=== PATIENT | female | born 1970 | race Caucasian/White ===

== ENCOUNTER → 2024-06-25 | Outpatient (CLI) | payer BC, SELFPAY ==
[2024-06-25 11:00] LABS: Cardiac Risk Estimate 2.7 RATIO (3.7-5.6); Cholesterol 144 mg/dL (132-200); Free T4 (Free Thyroxine) 1.13 ng/dL (0.89-1.76); HDL Cholesterol 54 mg/dL (40-60); LDL Cholesterol,Calculated 74 mg/dL (0-130); Triglycerides 79 mg/dL (30-150)
== END | disposition home or self-care (01) ==
LOC: COPL 09:35
PROVIDERS: PCP Family Medicine; Referring Provider Family Medicine; Visit Provider Family Medicine
DX: E03.9 Hypothyroidism, unspecified (principal); I10 Essential (primary) hypertension
CPT/HCPCS: 36415; 80061; 84439; 84443

== ENCOUNTER → 2024-07-02 | Outpatient (CLI) | payer BC, SELFPAY ==
[2024-07-02 12:39] LABS: Alanine Aminotransferase 22 U/L (10-49); Albumin, Serum 4.9 gm/dL (3.5-5.0); Albumin/Globulin Ratio 2.1 (1.2-2.2); Alkaline Phosphatase 106 U/L (46-116); Anion Gap 6 (7-16); Aspartate Amino Transferase 27 U/L (0-34); BUN/Creatinine Ratio 20 Ratio (12-20); Bilirubin,Total 1.1 mg/dL (0.3-1.2); Blood Urea Nitrogen 16 mg/dL (9-23); Calcium 9.9 mg/dL (8.3-10.6); Calcium (Corrected) 9.9 mg/dL (8.5-10.1); Carbon Dioxide 30.9 mMol/L (20.0-31.0); Chloride 101 mMol/L (98-107); Creatinine (Component) 0.8 mg/dL (0.6-1.3); Globulin 2.3 gm/dL (2.3-3.5); Glucose 99 mg/dL (74-106); Osmolality,Calculated 276 (275-295); Potassium 3.8 mMol/L (3.4-5.1); Sodium 138 mMol/L (136-145); Thyroid Stimulating Hormone 4.17 uIU/mL (0.55-4.78); Total Protein 7.2 gm/dL (5.7-8.2); eGFR > 60 See Note
[2024-07-02 12:56] LABS: Vitamin B12 > 2000 pg/mL (211-911)
== END | disposition home or self-care (01) ==
PROVIDERS: PCP Family Medicine; Referring Provider Family Medicine; Visit Provider Family Medicine
DX: R51.9 Headache, unspecified (principal); R47.81 Slurred speech
CPT/HCPCS: 36415; 80053; 82607; 84443

== ENCOUNTER → 2024-07-06 | Outpatient (CLI) | payer BC, SELFPAY ==
--- NOTE | 2024-07-06 | XR_ITS ---
Examination: MRI of brain without intravenous contrast. MRI brain with intravenous contrast. Date and time of exam:July 06, 2024 0801 hours INDICATIONS: Expressive language difficulty breathing and headaches beginning June 20, 2024, history breast cancer diagnosis Technique: Multiple axial and sagittal images of the brain to been obtained. Siemens high-resolution 1.52 Vianca short bore scanner utilized. Sagittal sections, T1 weighted images, TR 500, TE 14, are performed. Axial sections proton-density and T2-weighted images have been obtained. Inversion recovery axial images, TR 9260, TE 111, TR 2500. Diffusion weighted images, axial sections, TR 4800, TE 128, B value 1000. Axial sections, ADC map, TR 4800, TE 128. Axial and coronal images were also obtained post 14 cc gadolinium administered intravenously. Findings:: Enlargement of the sella turcica is not present. The optic chiasm and infundibular stalk are not remarkable. There is no localized enlargement of the medulla or jef. Fourth ventricle and cerebellar tonsils appear normal in position. No subacute area of hemorrhage density is seen. Fourth ventricle is midline. Mass in the cerebellopontine angle region is not evident. 7th and 8th nerve complexes exhibit symmetry Globes are symmetrical Orbital musculature including medial lateral rectus muscles do not exhibit abnormality Increased white matter signal is evident, scattered punctate foci increased signal in the cerebral white matter Effacement of the cortical sulcal markings is not identified. Mass effect upon the ventricular system is not identified. Diffusion-weighted images demonstrate no focus of restricted diffusion Contrast images demonstrate no abnormal enhancement Impression: Scattered punctate foci increased signal in the white matter, demyelinating disease pattern No abnormal enhancing cerebellar or cerebral lesions
== END | disposition home or self-care (01) ==
LOC: SMRI 07:39
PROVIDERS: Referring Provider Family Medicine; Visit Provider Family Medicine
DX: R90.82 White matter disease, unspecified (principal)
CPT/HCPCS: 70553; A9579

== ENCOUNTER → 2024-08-06 | Outpatient (CLI) | payer BC, SELFPAY ==
[2024-08-06 12:29] LABS: Coccid Serology, CF CSF (UCD)* See Sep Rpt; Misc Send Out* See Sep Rpt
[2024-08-06 13:27] LABS: Glucose,CSF 62 mg/dL (40-70); Protein Total,CSF 29 mg/dL (8-32)
[2024-08-06 13:46] LABS: CSF Cell Count Tube # Tube # 4; CSF Color Colorless (Colorless)
[2024-08-06 13:47] LABS: CSF Polynuclear WBC 0 %; CSF Red Blood Cell 2 /cmm; CSF White Blood Cell 14 /cmm; CSF, Appearance Clear (Clear)
[2024-08-06 14:52] LABS: CSF Gram Stain Alert Gram Stain Completed
[2024-08-10 13:50] LABS: Albumin, CSF 14.4 mg/dL (8.0-42.0); IgG, CSF 1.5 mg/dL (0.8-7.7); IgG, Serum 1090 mg/dL (600-1640); Synthesis Rate IgG, CSF -5.1 mg/24 h (-9.9 TO +3.3)
[2024-08-11 06:26] LABS: Albumin, Serum 4.2 g/dL (3.6-5.1); VDRL, CSF Qual* NON-REACTIVE
[2024-08-16 06:42] LABS: Angiotensin Convert Enz, CSF* 7 U/L (< OR = 15); Myelin Basic Protein, CSF* <2.0 mcg/L (< OR = 4.0); Oligoclonal Bands, CSF* ABSENT (ABSENT)
== END | disposition home or self-care (01) ==
LOC: COPL 11:59
PROVIDERS: PCP Family Medicine; Referring Provider Psychiatry & Neurology Neurology; Visit Provider Psychiatry & Neurology Neurology
DX: G37.9 Demyelinating disease of central nervous system, unspecified (principal)
CPT/HCPCS: 36415; 82040; 82042; 82164; 82784; 82945; 83873; 83916; 84157; 86171; 86592; 87070; 87205; 89051

== ENCOUNTER → 2024-09-03 | Outpatient (CLI) | payer BC, SELFPAY ==
[2024-09-03 11:12] LABS: Basophils # (Auto) 0.1 Thou/mm3 (0.0-0.2); Basophils % (Auto) 1 % (0-2.5); Eosinophils # (Auto) 0.2 Thou/mm3 (0.0-0.5); Eosinophils % (Auto) 4 % (0-10); Hematocrit 39.2 % (36.0-46.0); Hemoglobin 13.1 g/dL (12.0-16.0); Immature Granulocytes % (Auto) 0 % (0-0); Immature Granulocytes Auto 0.02 Thou/mm3 (0.00-0.00); Lymphocytes # (Auto) 1.8 Thou/mm3 (1.0-4.8); Lymphocytes % (Auto) 35 % (10-50); Mean Corpuscular HGB Conc 33.4 g/dl (31.0-37.0); Mean Corpuscular Hemoglobin 30.7 pg (25.0-35.0); Mean Corpuscular Volume 92 fL (80-100); Monocytes # (Auto) 0.3 Thou/mm3 (0.0-0.8); Monocytes % (Auto) 6 % (0-12); Neutrophils # (Auto) 2.8 Thou/mm3 (1.8-7.7); Neutrophils % (Auto) 54 % (37-80); Nucleated Red Blood Cell % 0 /100 WBC (0); Platelet Count 202 Thou/mm3 (140-440); Red Blood Count 4.27 Miln/mm3 (4.00-5.20); White Blood Count 5.2 Thou/mm3 (3.6-11.0)
[2024-09-03 11:35] LABS: Alanine Aminotransferase 40 U/L (10-49); Albumin, Serum 4.5 gm/dL (3.5-5.0); Alkaline Phosphatase 83 U/L (46-116); Anion Gap 7 (7-16); Aspartate Amino Transferase 24 U/L (0-34); BUN/Creatinine Ratio 24 Ratio (12-20); Blood Urea Nitrogen 17 mg/dL (9-23); Calcium 9.9 mg/dL (8.3-10.6); Calcium (Corrected) 9.9 mg/dL (8.5-10.1); Carbon Dioxide 32.5 mMol/L (20.0-31.0); Chloride 106 mMol/L (98-107); Creatinine (Component) 0.7 mg/dL (0.6-1.3); Globulin 2.3 gm/dL (2.3-3.5); Glucose 89 mg/dL (74-106); Osmolality,Calculated 289 (275-295); Potassium 3.7 mMol/L (3.4-5.1); Sodium 145 mMol/L (136-145); Total Protein 6.8 gm/dL (5.7-8.2); eGFR > 60 See Note
[2024-09-03 11:53] LABS: CA 15-3 16.2 U/mL (<32.4); Carcinoembryonic Antigen 1.2 ng/mL (0.0-5.0)
== END | disposition home or self-care (01) ==
LOC: SCTO 10:15
PROVIDERS: PCP Family Medicine; Referring Provider Nurse Practitioner Family; Visit Provider Nurse Practitioner Family
DX: C50.119 Malignant neoplasm of central portion of unspecified female breast (principal)
CPT/HCPCS: 36415; 80053; 82378; 85025; 86300

== ENCOUNTER 2024-09-08 10:31 | Outpatient (RCR) | payer BC, SELFPAY ==
--- NOTE | 2024-09-09 06:27 | CTCFLWUP_ITS ---
Patient: CHRISTIE RADFORD : 1970 Page 8 of 9 FOLLOW UP NOTE DATE OF SERVICE: 09/08/2024 NAME: CHRISTIE RADFORD ACCOUNT: [id number] : 1970 AGE: 53 INTERVAL HISTORY: ONCOLOGY HISTORY: DIAGNOSIS: Malignant neoplasm of central portion of unspecified female breast [ICD10] C50.119 Stage IIA (T2, N0, M0) triple negative high-grade invasive ductal carcinoma of left breast with palpable left axillary adenopathy. S/p 4 cycles of dose dense AC as well as 4 cycles of dose dense Taxol in the neoadjuvant setting (05/29/2020?09/11/2020). Status post bilateral mastectomies and left axillary sentinel node biopsy. Surgical pathology specimen showed no residual disease (yP0, yN0). BRCA 1 and 2 negative Status post bilateral silicone breast implants. DATE OF DIAGNOSIS: 04/20/2020 STAGE/TNM: Stage IIA (T2, N0, M0) triple negative high-grade invasive ductal carcinoma of left breast with palpable left axillary adenopathy. TREATMENT HISTORY: Care?Plan Start?Date Cycle Day Intent AC-Taxol?Dose?Dense?q?2wks 05/10/2020 1 14 Curative?(adjuvant) HISTORY OF PRESENT ILLNESS: PREVIOUS NOTE: Christie Radford is a 53-year-old ENG speaking female working ,has been having yearly screening mammograms since age 33 due to strong family history, recently had a regular yearly screening mammogram which showed a mass lesion in the left breast. 03/07/2020: Bilateral screening digital mammography? 03/30/2020: Bilateral diagnostic digital mammography? 03/30/2020: Left breast ultrasound? 04/20/2020: Ultrasound-guided percutaneous left breast retroareolar mass biopsy? 05/10/2020: Right breast stereotactic biopsy? 05/11/2020: CA 15-3 19.0, CEA less than 0.5. 05/17/2020: Echocardiogram?LVEF 55-60%. 05/22/2020: Ultrasound-guided biopsy of the left axillary mass was performed. Right axillary ultrasound did not reveal any adenopathy. 05/24/2020: CT scan of the chest abdomen and pelvis with IV contrast? 05/22/2020: Left axillary lymph node ultrasound-guided fine-needle aspiration/biopsy? 05/29/2020?07/10/2020: Patient received 4 cycles of dose dense AC chemotherapy in the neoadjuvant setting. 07/24/2020?09/11/2020: Patient received 4 cycles of dose dense Taxol. 05/29/2020: BRCA 1 and 2 test results came back negative? 09/18/2020: Left breast MRI with and without contrast? 11/03/2020: Bilateral mastectomies and left sentinel lymph node biopsy? 06/11/2021: S/p bilateral silicone breast implantation. 11/03/2021: PET/CT scan?no interval metastatic disease. 11/21/2022: PET/CT 03/10/2023: MRI breast with and without contrast 04/07/2023: Bilateral mammogram screening 04/18/2023: Bilateral ultrasound 12/15/2023: Right diagnostic mammogram 03/19/2024: Bone densitometry-osteopenia on hip measurements 05/19/2024: CEA<0.5, CA 15-3 is 18.9 OTHER MEDICAL HISTORY/CONDITIONS: FAMILY HISTORY: SOCIAL HISTORY: [employer] WORKER HISTORY: MEDICATIONS: 1. alendronate - 35 mg 1 tab one tab po q weekly 2. B12 - 5,000-100 mcg Daily 3. Citracal - 200 mg 1 tab Twice a Day 4. hydrochlorothiazide - 25 mg 1 tab Daily 5. levothyroxine - 50 mcg 1 tab Daily 6. multivitamin - 1 tab Daily Medications Last Reconciled by Rehana Govea MA on 09/08/2024 ALLERGIES: No Known Drug Allergies REVIEW OF SYSTEMS: A complete 14-point review of systems was performed and is negative except as noted in interval history. PHYSICAL EXAMINATION: VITAL SIGNS: Temperature?99.8, B/P?125/87, Oxygen?Saturation?100% Weight?162?lbs PAIN: 0 - No pain GENERAL APPEARANCE: Appears well, in no apparent distress, appropriately interactive. HEENT: Normocephalic, no temporal wasting, normal conjunctiva, no scleral icterus, normal hearing, lips without lesions, neck normal range of motion. CARDIOVASCULAR: Not assessed. PULMONARY: Normal respiratory effort, no respiratory distress or use of accessory muscles, speaking in full sentences, no tachypnea. EXTREMITIES: No pedal edema or cyanosis. SKIN: Normal skin appearance. NEUROLOGIC: Alert and oriented x4. PSHYCHIATRIC: Appropriate affect, mood normal, behavior normal, intact thought and speech. LABORATORY DATA: I have personally reviewed and interpreted each of the patient?s relevant lab tests, abnormal findings are below: Date 09/03/24 ??WHITE?BLOOD?COUNT?(Thou/mm3) 5.2 ??RED?BLOOD?COUNT?(Miln/mm3) 4.27 ??HEMOGLOBIN?(gm/dl) 13.1 ??HEMATOCRIT?(%) 39.2 ??PLATELET?COUNT?(Thou/mm3) 202 ??NEUTROPHILS?%,?AUTO?(%) 54 ??LYMPH?%,?AUTO?(%) 35 ??NEUTROPHILS,?AUTO?(Thou/mm3) 2.8 ASSESSMENT/PLAN: #1. Stage IIA (T2, N0, M0) triple negative high-grade invasive ductal carcinoma of left breast with palpable left axillary adenopathy. S/p 4 cycles of dose dense AC as well as 4 cycles of dose dense Taxol in the neoadjuvant setting (05/29/2020?09/11/2020). Status post bilateral mastectomies and left axillary sentinel node biopsy. Surgical pathology specimen showed no residual disease (yP0, yN0). BRCA 1 and 2 negative Strong family history of breast cancers. Completed bilateral breast reconstruction surgery without any complication Status post bilateral silicone breast implants. Follows up with Dr. Smith, breast surgeon and Dr. Mckinney, plastic surgeon. Liposuction bilateral chest, 01/12/2024. PET/CT scan done on 11/21/2022 is a negative study. No clinical evidence of recurrence of her breast cancer, Ms. Radford denies any complaints. CBC CMP CEA CA 15-3 prior to next follow-up appointment #2. Hypothyroidism. Taking levothyroxine, continue following up with PCP for management. #3. Colon cancer screening Colonoscopy, hemorrhoids, 11/29/2022. #4. Osteopenia Biphosphonate clearance form. On Fosamax 35mg weekly. Taking daily [id number] vitamin D. Continue Citracal 2 tablets by mouth daily. CBC CMP CA 15-3 RETURN TO CLINIC: 6 months BILLING AND COMPLIANCE: I reviewed external records from providers outside my specialty as summarized above. I spent a total of 50 minutes on this patient?s care on the day of their visit excluding time spent related to any billed procedures. This time includes time spent with the patient as well as time spent documenting in the medical record, reviewing patients records and tests, obtaining history, placing orders, communicating with other healthcare professionals, counseling the patient, family or caregiver, and/or care coordination for the diagnoses above. Electronically Signed by: Jens Jim MD T: 6:25 AM CC: PCP: Celestino Childers Referring: Celestino Childers This document was completed utilizing speech recognition software. Grammatical errors, random word insertions, pronoun errors, and incomplete sentences are an occasional consequence of this system due to software limitations, ambient noise, and hardware issues. Any formal questions or concerns about the content, text or information contained within the body of this dictation should be directly addressed to the provider for clarification.
== END 2024-09-17 23:59 | disposition home or self-care (01) ==
LOC: SCTC 10:31
PROVIDERS: PCP Family Medicine; Referring Provider Family Medicine; Visit Provider Internal Medicine Hematology & Oncology
DX: Z08 Encounter for follow-up examination after completed treatment for malignant neoplasm (principal); Z85.3 Personal history of malignant neoplasm of breast; Z92.21 Personal history of antineoplastic chemotherapy; Z90.13 Acquired absence of bilateral breasts and nipples; Z80.3 Family history of malignant neoplasm of breast; E03.9 Hypothyroidism, unspecified; Z79.890 Hormone replacement therapy; K64.9 Unspecified hemorrhoids; M85.80 Other specified disorders of bone density and structure, unspecified site
CPT/HCPCS: 99212; G0463

== ENCOUNTER → 2025-03-03 | Outpatient (CLI) | payer BC, SELFPAY ==
[2025-03-03 17:53] LABS: Basophils # (Auto) 0.1 Thou/mm3 (0.0-0.2); Basophils % (Auto) 1 % (0-2.5); Eosinophils # (Auto) 0.1 Thou/mm3 (0.0-0.5); Eosinophils % (Auto) 2 % (0-10); Hematocrit 38.6 % (36.0-46.0); Hemoglobin 12.8 g/dL (12.0-16.0); Immature Granulocytes Auto 0.02 Thou/mm3 (0.00-0.00); Lymphocytes # (Auto) 2.5 Thou/mm3 (1.0-4.8); Lymphocytes % (Auto) 44 % (10-50); Mean Corpuscular HGB Conc 33.2 g/dl (31.0-37.0); Mean Corpuscular Hemoglobin 31.6 pg (25.0-35.0); Mean Corpuscular Volume 95 fL (80-100); Monocytes # (Auto) 0.4 Thou/mm3 (0.0-0.8); Monocytes % (Auto) 6 % (0-12); Neutrophils # (Auto) 2.7 Thou/mm3 (1.8-7.7); Neutrophils % (Auto) 47 % (37-80); Nucleated Red Blood Cell # 0.00 Thou/mm3 (0.00-0.00); Nucleated Red Blood Cell % 0 /100 WBC (0); Platelet Count 203 Thou/mm3 (140-440); RDW Standard Deviation 41.4 fL (36.4-46.3); Red Blood Count 4.05 Miln/mm3 (4.00-5.20); White Blood Count 5.8 Thou/mm3 (3.6-11.0)
[2025-03-03 17:56] LABS: Alanine Aminotransferase 19 U/L (10-49); Albumin, Serum 4.8 gm/dL (3.5-5.0); Albumin/Globulin Ratio 2.0 (1.2-2.2); Alkaline Phosphatase 75 U/L (46-116); Anion Gap 10 (7-16); Aspartate Amino Transferase 29 U/L (0-34); BUN/Creatinine Ratio 13 Ratio (12-20); Bilirubin,Total 0.6 mg/dL (0.3-1.2); Blood Urea Nitrogen 9 mg/dL (9-23); Calcium 10.3 mg/dL (8.3-10.6); Calcium (Corrected) 10.3 mg/dL (8.5-10.1); Carbon Dioxide 31.7 mMol/L (20.0-31.0); Chloride 100 mMol/L (98-107); Creatinine (Component) 0.7 mg/dL (0.6-1.3); Globulin 2.4 gm/dL (2.3-3.5); Glucose 78 mg/dL (74-106); Osmolality,Calculated 280 (275-295); Potassium 3.2 mMol/L (3.4-5.1); Sodium 142 mMol/L (136-145); Total Protein 7.2 gm/dL (5.7-8.2); eGFR > 60 See Note
[2025-03-03 18:26] LABS: CA 15-3 18.3 U/mL (<32.4)
== END | disposition home or self-care (01) ==
LOC: SCTO 16:22
PROVIDERS: PCP Family Medicine; Referring Provider Internal Medicine Hematology & Oncology; Visit Provider Internal Medicine Hematology & Oncology
DX: C50.119 Malignant neoplasm of central portion of unspecified female breast (principal)
CPT/HCPCS: 36415; 80053; 85025; 86300

== ENCOUNTER 2025-03-08 08:59 | Outpatient (RCR) | payer BC, SELFPAY | END 2025-03-20 23:59 | disposition home or self-care (01) | LOC: SCTC 08:59 | PROVIDERS: PCP Family Medicine; Referring Provider Family Medicine; Visit Provider Nurse Practitioner Family | DX: Z08 Encounter for follow-up examination after completed treatment for malignant neoplasm (principal); Z85.3 Personal history of malignant neoplasm of breast; Z90.13 Acquired absence of bilateral breasts and nipples; Z92.21 Personal history of antineoplastic chemotherapy; Z80.3 Family history of malignant neoplasm of breast; M85.80 Other specified disorders of bone density and structure, unspecified site; R47.89 Other speech disturbances; E83.52 Hypercalcemia; E87.6 Hypokalemia; I10 Essential (primary) hypertension | CPT/HCPCS: 99212; G0463 ==

== ENCOUNTER → 2025-04-11 | Outpatient (CLI) | payer BC, SELFPAY ==
[2025-04-11 08:09] LABS: Collection Type, Urine Clean Catch; RBC,Urine 0 /hpf (0-3); WBC,Urine 0 /hpf (0-5)
[2025-04-11 08:27] LABS: Basophils # (Auto) 0.0 Thou/mm3 (0.0-0.2); Basophils % (Auto) 1 % (0-2.5); Eosinophils # (Auto) 0.1 Thou/mm3 (0.0-0.5); Eosinophils % (Auto) 1 % (0-10); Hematocrit 38.6 % (36.0-46.0); Hemoglobin 13.2 g/dL (12.0-16.0); Immature Granulocytes Auto 0.03 Thou/mm3 (0.00-0.00); Lymphocytes # (Auto) 2.5 Thou/mm3 (1.0-4.8); Lymphocytes % (Auto) 41 % (10-50); Mean Corpuscular HGB Conc 34.2 g/dl (31.0-37.0); Mean Corpuscular Hemoglobin 32.3 pg (25.0-35.0); Mean Corpuscular Volume 94 fL (80-100); Monocytes # (Auto) 0.4 Thou/mm3 (0.0-0.8); Monocytes % (Auto) 6 % (0-12); Neutrophils # (Auto) 3.1 Thou/mm3 (1.8-7.7); Neutrophils % (Auto) 50 % (37-80); Nucleated Red Blood Cell # 0.00 Thou/mm3 (0.00-0.00); Nucleated Red Blood Cell % 0 /100 WBC (0); Platelet Count 190 Thou/mm3 (140-440); RDW Standard Deviation 41.5 fL (36.4-46.3); Red Blood Count 4.09 Miln/mm3 (4.00-5.20); White Blood Count 6.1 Thou/mm3 (3.6-11.0)
[2025-04-11 09:04] LABS: Alanine Aminotransferase 18 U/L (10-49); Albumin, Serum 4.6 gm/dL (3.5-5.0); Albumin/Globulin Ratio 1.9 (1.2-2.2); Alkaline Phosphatase 75 U/L (46-116); Anion Gap 9 (7-16); Aspartate Amino Transferase 24 U/L (0-34); BUN/Creatinine Ratio 14 Ratio (12-20); Bilirubin,Total 1.1 mg/dL (0.3-1.2); Blood Urea Nitrogen 11 mg/dL (9-23); Calcium 10.0 mg/dL (8.3-10.6); Calcium (Corrected) 10.0 mg/dL (8.5-10.1); Carbon Dioxide 30.8 mMol/L (20.0-31.0); Cardiac Risk Estimate 2.8 RATIO (3.7-5.6); Chloride 102 mMol/L (98-107); Cholesterol 173 mg/dL (132-200); Creatinine (Component) 0.8 mg/dL (0.6-1.3); Free T4 (Free Thyroxine) 1.28 ng/dL (0.89-1.76); Globulin 2.4 gm/dL (2.3-3.5); Glucose 108 mg/dL (74-106); HDL Cholesterol 62 mg/dL (40-60); LDL Cholesterol,Calculated 91 mg/dL (0-130); Osmolality,Calculated 283 (275-295); Potassium 3.9 mMol/L (3.4-5.1); Sodium 142 mMol/L (136-145); Thyroid Stimulating Hormone 4.40 uIU/mL (0.55-4.78); Total Protein 7.0 gm/dL (5.7-8.2); Triglycerides 102 mg/dL (30-150); eGFR > 60 See Note
[2025-04-11 09:07] LABS: Bilirubin,Urine Negative (Negative); Blood,Urine Negative (Negative); Clarity,Urine Clear (Clear/Hazy); Color,Urine Colorless (Lt Yel-Yel); Glucose, Urine Negative (Negative); Ketones,Urine Negative (Negative); Leukocyte Esterase,Urine Negative (Negative); Nitrite,Urine Negative (Negative); PH,Urine 6.5 (5.0-7.0); Protein,Urine Negative (Neg - Trace); Specific Gravity,Urine 1.004 (1.001-1.035); Squamous Epithelial Cell,Urine 3 /hpf (0-5); Urobilinogen,Urine Negative mg/dL (0.0-1.0)
== END | disposition home or self-care (01) ==
LOC: SCTO 07:12
PROVIDERS: PCP Family Medicine; Referring Provider Nurse Practitioner Family; Visit Provider Family Medicine
DX: I10 Essential (primary) hypertension (principal); E03.9 Hypothyroidism, unspecified; C50.119 Malignant neoplasm of central portion of unspecified female breast
CPT/HCPCS: 36415; 80053; 80061; 81001; 84439; 84443; 85025

== ENCOUNTER 2025-04-12 09:42 | Outpatient (RCR) | payer BC, SELFPAY | END 2025-04-19 23:59 | disposition home or self-care (01) | LOC: SCTC 09:42 | PROVIDERS: PCP Family Medicine; Referring Provider Family Medicine; Visit Provider Nurse Practitioner Family | DX: C50.112 Malignant neoplasm of central portion of left female breast (principal); Z17.421 Hormone receptor negative with human epidermal growth factor receptor 2 negative status; Z90.13 Acquired absence of bilateral breasts and nipples; R47.9 Unspecified speech disturbances; Z92.21 Personal history of antineoplastic chemotherapy; M85.80 Other specified disorders of bone density and structure, unspecified site; E83.52 Hypercalcemia; E87.6 Hypokalemia; I10 Essential (primary) hypertension | CPT/HCPCS: 99212; G0463 ==